=== PATIENT | male | born 1970 | race Caucasian/White ===

== ENCOUNTER → 2023-12-24 20:11 | Outpatient (REF) | payer OTHER, SELFPAY | LOC: MRI 3T 20:11 | PROVIDERS: ATTENDING PHYSICIAN Physician Assistant Medical | DX: R41.3 Other amnesia (principal) | CPT/HCPCS: 70553; A9575 ==

== ENCOUNTER 2024-05-26 15:57 | Outpatient (RCR) | payer OTHER, SELFPAY | END 2024-05-26 23:59 | disposition home or self-care (01) | LOC: RST 15:57 | PROVIDERS: ATTENDING PHYSICIAN Specialist; FAMILY PHYSICIAN Nurse Practitioner Adult Health | DX: G31.84 Mild cognitive impairment of uncertain or unknown etiology (principal); R47.01 Aphasia; R47.9 Unspecified speech disturbances; R41.841 Cognitive communication deficit | CPT/HCPCS: 92507; 92523 ==

== ENCOUNTER 2024-06-23 15:54 | Outpatient (RCR) | payer OTHER, SELFPAY | END 2024-06-23 23:59 | disposition home or self-care (01) | LOC: RST 15:54 | PROVIDERS: ATTENDING PHYSICIAN Specialist; FAMILY PHYSICIAN Nurse Practitioner Adult Health | DX: G31.84 Mild cognitive impairment of uncertain or unknown etiology (principal); R47.01 Aphasia; R47.9 Unspecified speech disturbances; R41.841 Cognitive communication deficit | CPT/HCPCS: 92507 ==

== ENCOUNTER 2024-07-21 16:01 | Outpatient (RCR) | payer OTHER, SELFPAY | END 2024-07-21 23:59 | disposition home or self-care (01) | LOC: RST 16:01 | PROVIDERS: ATTENDING PHYSICIAN Specialist; FAMILY PHYSICIAN Nurse Practitioner Adult Health | DX: R47.01 Aphasia (principal); G31.84 Mild cognitive impairment of uncertain or unknown etiology; R47.9 Unspecified speech disturbances; R41.841 Cognitive communication deficit | CPT/HCPCS: 92507 ==

== ENCOUNTER 2024-08-20 06:44 | Outpatient (RCR) | payer OTHER, SELFPAY | END 2024-08-20 23:59 | disposition home or self-care (01) | LOC: RST 06:44 | PROVIDERS: ATTENDING PHYSICIAN Specialist; FAMILY PHYSICIAN Nurse Practitioner Adult Health | DX: R47.01 Aphasia (principal); G31.84 Mild cognitive impairment of uncertain or unknown etiology; R47.9 Unspecified speech disturbances; R41.841 Cognitive communication deficit | CPT/HCPCS: 92507 ==

== ENCOUNTER 2024-09-22 15:50 | Outpatient (RCR) | payer OTHER, SELFPAY | END 2024-09-22 23:59 | disposition home or self-care (01) | LOC: RST 15:50 | PROVIDERS: ATTENDING PHYSICIAN Specialist; FAMILY PHYSICIAN Nurse Practitioner Adult Health | DX: R47.01 Aphasia (principal); G31.84 Mild cognitive impairment of uncertain or unknown etiology; R47.9 Unspecified speech disturbances; R41.841 Cognitive communication deficit | CPT/HCPCS: 92507 ==

== ENCOUNTER 2024-10-19 10:16 | Outpatient (RCR) | payer OTHER, SELFPAY | END 2024-10-19 23:59 | disposition home or self-care (01) | LOC: RST 10:16 | PROVIDERS: ATTENDING PHYSICIAN Specialist; FAMILY PHYSICIAN Nurse Practitioner Adult Health | DX: R47.01 Aphasia (principal); G31.84 Mild cognitive impairment of uncertain or unknown etiology; R47.9 Unspecified speech disturbances; R41.841 Cognitive communication deficit | CPT/HCPCS: 92507 ==

== ENCOUNTER 2024-11-24 08:45 | Outpatient (RCR) | payer OTHER, SELFPAY | END 2024-11-24 23:59 | disposition home or self-care (01) | LOC: RST 08:45 | PROVIDERS: ATTENDING PHYSICIAN Specialist; FAMILY PHYSICIAN Nurse Practitioner Adult Health | DX: R47.01 Aphasia (principal); G31.84 Mild cognitive impairment of uncertain or unknown etiology; R47.9 Unspecified speech disturbances; R41.841 Cognitive communication deficit | CPT/HCPCS: 92507 ==

== ENCOUNTER 2024-12-22 06:49 | Outpatient (RCR) | payer OTHER, SELFPAY | END 2024-12-22 23:59 | disposition home or self-care (01) | LOC: RST 06:49 | PROVIDERS: ATTENDING PHYSICIAN Specialist; FAMILY PHYSICIAN Nurse Practitioner Adult Health | DX: R47.01 Aphasia (principal); G31.84 Mild cognitive impairment of uncertain or unknown etiology; R47.9 Unspecified speech disturbances; R41.841 Cognitive communication deficit | CPT/HCPCS: 92507 ==

== ENCOUNTER 2025-01-26 16:01 | Outpatient (RCR) | payer OTHER, SELFPAY | END 2025-01-26 23:59 | disposition home or self-care (01) | LOC: RST 16:01 | PROVIDERS: ATTENDING PHYSICIAN Specialist; FAMILY PHYSICIAN Nurse Practitioner Adult Health | DX: R47.01 Aphasia (principal); G31.84 Mild cognitive impairment of uncertain or unknown etiology; R47.9 Unspecified speech disturbances; R41.841 Cognitive communication deficit | CPT/HCPCS: 92507 ==

== ENCOUNTER 2025-02-09 10:26 | Outpatient (RCR) | payer OTHER, SELFPAY | END 2025-02-09 23:59 | disposition home or self-care (01) | LOC: RST 10:26 | PROVIDERS: ATTENDING PHYSICIAN Specialist; FAMILY PHYSICIAN Nurse Practitioner Adult Health | DX: R47.01 Aphasia (principal); G31.84 Mild cognitive impairment of uncertain or unknown etiology; R47.9 Unspecified speech disturbances; R41.841 Cognitive communication deficit | CPT/HCPCS: 92507 ==

== ENCOUNTER 2025-03-23 08:31 | Outpatient (RCR) | payer OTHER, SELFPAY | END 2025-03-23 23:59 | disposition home or self-care (01) | LOC: RST 08:31 | PROVIDERS: ATTENDING PHYSICIAN Specialist; FAMILY PHYSICIAN Nurse Practitioner Adult Health | DX: R47.01 Aphasia (principal); G31.84 Mild cognitive impairment of uncertain or unknown etiology; R47.9 Unspecified speech disturbances; R41.841 Cognitive communication deficit | CPT/HCPCS: 92507 ==

== ENCOUNTER 2025-04-26 07:09 | Outpatient (RCR) | payer OTHER, SELFPAY | END 2025-04-26 23:59 | disposition home or self-care (01) | LOC: RST 07:09 | PROVIDERS: ATTENDING PHYSICIAN Specialist; FAMILY PHYSICIAN Nurse Practitioner Adult Health | DX: R47.01 Aphasia (principal); G31.84 Mild cognitive impairment of uncertain or unknown etiology; R47.9 Unspecified speech disturbances; R41.841 Cognitive communication deficit | CPT/HCPCS: 92507 ==